=== PATIENT | male | born 1970 | race Caucasian/White ===

== ENCOUNTER 2024-10-22 11:42 | Observation (INO) ==
--- NOTE | 2024-10-22 12:09 | Emergency Department Note ---
Impression & Plan Chest pain, Chest pain, exertional ED Provider Note NAME: ASAEL [id number] MARY AGE: 54 SEX: M : 1970 ARRIVES VIA: Ambulance INFORMANT: Patient, ED PROVIDER(S): Jeremias Ovalles DO CHIEF COMPLAINT: Chest pain HPI: The patient is a 54-year-old male who has a history of hypertension and high cholesterol who presented to the emergency department for evaluation of chest pain. The patient resides at [facility]. The patient was sent to the emergency department after he was evaluated today for chest pain. The patient describes he has been having pressure on his left chest for the last several months. It worsens with exertion. The patient noticed pain radiating to his left arm. He went to the [facility] today and was referred directly to the emergency department. ROS: See above HPI for pertinent positives & negatives. A total of [10] systems reviewed and were otherwise negative. PAST MEDICAL HISTORY: [See Below] PAST SURGICAL HISTORY: [See Below] FAMILY HISTORY: [See Below] SOCIAL HISTORY: [See Below] HOME MEDICATIONS: [See Below] ALLERGIES: [See Below] VITALS: See Below PHYSICAL EXAMINATION: GENERAL: Patient is awake alert in no acute distress patient is resting comfortably and showing no signs of anxiety EYES: The conjunctivae are clear. The pupils are round and reactive. EARS, NOSE, MOUTH AND THROAT: The nose is without any evidence of any deformity. NECK: The neck is nontender and supple. RESPIRATORY: Normal respiratory effort is noted there is no evidence of wheezing rhonchi or rales CARDIOVASCULAR: Regular rate and rhythm noted there no murmurs rubs or gallops normal S1 normal S2. GASTROINTESTINAL: The abdomen is soft. Abdomen is nontender. SKIN: There is no obvious evidence of any rash. There are no petechiae, pallor or cyanosis noted. NEUROLOGIC: Patient is awake alert and oriented x3 MEDICAL DECISION MAKING: The patient is a 54-year-old male who presented to the emergency department from the [facility] for an evaluation of chest pain. The patient has been experiencing chest pain over the course of the last several weeks. The chest pain has been exertional. The patient presented to the emergency department today after experiencing chest pain again and going to the [facility]. He was treated with aspirin. He arrives at the emergency department pain-free. I discussed the patient's laboratory and radiographic studies with him. I discussed the limitations of the emergency far workup for chest pain with him. Ultimately given the patient's living situation I do not feel that he would be a good outpatient follow-up candidate. For this reason I discussed his condition with the on-call [facility] hospitalist. Triage Nursing notes reviewed. Prior medical records reviewed Vital Signs: reviewed and remarkable for no significant abnormalities Differential diagnosis: Cardiac ischemia, aortic dissection, pulmonary embolism, pneumothorax, pneumonia, pericarditis, myocarditis, esophageal rupture, GERD, cholecystitis, pancreatitis, musculoskeletal, as well as other pathologies. ER treatment provided: See below Diagnostics interpreted by me: ECG: EKG was obtained in the emergency department. My interpretation is normal sinus rhythm at 80 bpm. There was no ectopy. There was no acute ST segment abnormalities noted. No previous tracing was available in our system. EKG was reviewed from [place]. My interpretation is normal sinus rhythm at 85 beats per minute. There is no ectopy. There is no acute ST segment abnormalities noted. Poor baseline was noted. Cardiac Monitoring: An order was placed for continuous cardiac monitoring. The monitor shows a rate of 78 bpm with sinus rhythm. Laboratory studies: As stated above and show below. Imaging studies: See below. Radiographic imaging was reviewed by myself Consultation(s): I discussed this case with Dr. Alvarado [facility]. Past Med/Surg History Problem List (Updated 10/22/24 @ 14:13 by Jeremias Ovalles DO) Chest pain, exertional (Acute) Chest pain (Acute) Medical History Hyperlipidemia Coronary artery disease Hypertension Social History Smoking Status: Never smoker Communication Tools: IPad Feels Safe at Home: Yes Results & Data (ED) Vital Signs Vital Signs - 24 hr 10/22/24 11:42 10/22/24 11:47 10/22/24 12:14 Temperature 36.7 C Temperature Source Oral Pulse Rate 74 78 78 Pulse Rate [Apical] Pulse Rate from SpO2 Sensor Pulse Rhythm Regular Respiratory Rate 15 15 Respiratory Effort / Characteristics Non-Labored Respiratory Depth Normal Respiratory Pattern Regular Blood Pressure 100/75 Blood Pressure [Left Arm] Blood Pressure Mean 83 Blood Pressure Mean [Left Arm] Pulse Oximetry 98 98 Oxygen Delivery Method Room Air Room Air Sepsis Recent Fever Within 48 Hours No Sepsis New/Unexplained Change in Mental Status N/A Sepsis Action Taken by Nursing No Action Required 10/22/24 12:30 10/22/24 12:33 10/22/24 12:47 Temperature Temperature Source Pulse Rate 72 Pulse Rate [Apical] 80 Pulse Rate from SpO2 Sensor 71 Pulse Rhythm Respiratory Rate 17 22 Respiratory Effort / Characteristics Non-Labored Respiratory Depth Normal Respiratory Pattern Blood Pressure 126/82 Blood Pressure [Left Arm] 126/82 Blood Pressure Mean 92 Blood Pressure Mean [Left Arm] 96 Pulse Oximetry 100 95 Oxygen Delivery Method Room Air Room Air Sepsis Recent Fever Within 48 Hours Sepsis New/Unexplained Change in Mental Status Sepsis Action Taken by Nursing 10/22/24 13:00 10/22/24 13:30 Temperature Temperature Source Pulse Rate 72 78 Pulse Rate [Apical] Pulse Rate from SpO2 Sensor 82 79 Pulse Rhythm Respiratory Rate 19 19 Respiratory Effort / Characteristics Respiratory Depth Respiratory Pattern Blood Pressure 155/87 H 119/63 Blood Pressure [Left Arm] Blood Pressure Mean 109 83 Blood Pressure Mean [Left Arm] Pulse Oximetry 99 Oxygen Delivery Method Sepsis Recent Fever Within 48 Hours Sepsis New/Unexplained Change in Mental Status Sepsis Action Taken by Long-Term Medications Current Medication List: was personally reviewed by me Laboratory Data Attestation: I reviewed the patient's lab results. 10/22/24 12:03 10/22/24 12:03 Lab Results 10/22/24 Range/Units 12:03 WBC 8.46 (4.8-10.8) K/ul RBC 4.85 (4.70-6.10) M/uL Hgb 14.1 (14.0-18.0) g/dl Hct 41.7 L (42.0-52.0) % MCV 86.0 (80.0-100.0) fL MCH 29.1 (25.0-34.0) pg MCHC 33.8 (32.0-36.0) g/dL RDW Std Deviation 45.0 (36.4-46.3) fL RDW Coeff of Heidi 14.3 (11.5-14.5) % Plt Count 327 (130-400) K/uL MPV 9.6 (9.4-12.4) fL Immature Gran % (Auto) 0.1 % Neut % (Auto) 41.4 % Lymph % (Auto) 38.2 % [place]ess % (Auto) 14.4 % Eos % (Auto) 5.2 % Baso % (Auto) 0.7 % Neut # (Auto) 3.50 (1.40-6.50) K/uL Lymph # (Auto) 3.23 (1.20-3.40) K/uL [place]ess # (Auto) 1.22 H (0.11-0.59) K/uL Eos # (Auto) 0.44 (0.00-0.50) K/uL Baso # (Auto) 0.06 (0.00-0.20) K/uL Immature Gran # (Auto) 0.01 (0.01-0.20) K/uL PT 10.7 (9.0-12.0) Seconds INR 1.0 (0.9-1.1) APTT 28 (21-31) Seconds PTT Ratio 1.0 Sodium 137 (136-145) mmol/L Potassium 4.4 (3.5-5.1) mmol/L Chloride 105 (98-107) mmol/L Carbon Dioxide 25 (21-32) mmol/L Anion Gap 7 (3-11) BUN 14 (6-23) mg/dl Creatinine 1.02 (0.6-1.4) mg/dl Est Cr Clr Drug Dosing 104.8 ml/min eGFR 86.26 BUN/Creatinine Ratio 13.7 (10-20) Glucose 83 (70-99(Fasting)) mg/dl Calcium 9.4 (8.6-10.3) mg/dl Total Bilirubin 0.5 (0.2-1.0) mg/dl AST 23 (13-39) U/L ALT 11 (7-52) U/L Alkaline Phosphatase 55 (34-104) U/L Troponin I High Sens 5.7 (0-20) pg/ml Total Protein 7.3 (6.0-8.3) gm/dl Albumin 4.4 (3.4-5.0) gm/dl Globulin 2.9 (2.5-4.0) gm/dl Albumin/Globulin Ratio 1.5 (0.9-2) Lipase 21 (11-82) U/L Administered Medications Discontinued Medications Ioversol (Optiray 320 125ml) 120 ml IV ONCE ONE Stop: 10/22/24 13:12 Last Admin: 10/22/24 13:12 Dose: 120 ml Documented By: KEI Imaging Data Attestation: I personally reviewed and interpreted this imaging study as follows: My Impression: 1 view chest x-ray was obtained in the emergency department. My interpretation is no free air or definite infiltrate, final report below. Radiologist's Impression: Chest X-Ray 10/22/24 11:47 EXAM: Radiograph of the Chest 1 View INDICATION: Chest pain. TECHNIQUE: Frontal view of the chest. COMPARISON: No relevant prior studies available. FINDINGS: Lungs and pleural spaces: Groundglass infiltrate noted in the lateral right lung base. Generalized interstitial prominence noted in both lungs. There is scarring and insulin effects. No pleural effusion or pneumothorax. Heart: Shape and configuration within normal limits allowing for technique. Mediastinum: Normal contour. Bones/joints: No fracture, erosion or dislocation. Soft tissues: No abnormality noted. No radiopaque foreign body noted. Upper abdomen: No abnormality noted. IMPRESSION: 1. Groundglass infiltrate right lung base most concerning for pneumonia including viral etiologies. 2. Interstitial thickening may reflect acute and/or chronic bronchitis and vascular congestion. ACT 112: Negative or not required by law. Electronically signed by Danita Caldwell 10-22-2024 12:28 PM Chest CTA 10/22/24 13:04 EXAM: CT Angiography Chest With Intravenous Contrast INDICATION: Chest pain and shortness of breath. TECHNIQUE: Axial computed tomographic angiography images of the chest with intravenous contrast. Sagittal and coronal reformatted images were created and reviewed. This CT exam was performed using one or more of the following dose reduction techniques: automated exposure control, adjustment of the mA and/or kV according to patient size, and/or use of iterative reconstruction technique. MIP reconstructed images were created and reviewed. CONTRAST: 120ml of Optiray 320 was administered intravenously. COMPARISON: No relevant prior studies available. FINDINGS: Pulmonary arteries: No abnormality noted. No pulmonary embolism. Aorta: No acute change noted. No thoracic aortic aneurysm or dissection. Lungs and pleural spaces: Paraseptal and centrilobular emphysematous changes present. There is subpleural reticulation in all lobes. No bronchiectasis. No pleural effusion or pneumothorax. No mass. Heart: No abnormality noted. No cardiomegaly. No significant pericardial effusion. No evidence of RV dysfunction. Mediastinum: There is mild circumferential wall prominence of the distal half of the esophagus which is incompletely distended. No mass noted. No paraesophageal fluid. Bones/joints: Degenerative changes noted throughout the spine. No acute osseous abnormality seen. Soft tissues: No abnormality noted. Lymph nodes: No abnormality noted. No enlarged lymph nodes. IMPRESSION: 1. No pulmonary embolus noted. 2. Emphysematous and fibrotic changes present. 3. Prominent mucosal thickness of the distal half of the esophagus could reflect incomplete distention or esophagitis. ACT 112: Negative or not required by law. Electronically signed by Danita Caldwell 10-22-2024 13:26 PM Discharge Plan Visit Data Chief Complaint: Chest Pain Stated Complaint: CHEST PAIN ED Provider: Jeremias Ovalles Discharge Problem: Chest pain, Chest pain, exertional Patient Disposition: Being Evaluated by Hospitalist Forms Stand Alone Forms: On License Of [facility] Referrals Referrals: PCP,NO [Physician] - Discharge Problem: Chest pain Qualifiers: Chest pain type: unspecified Qualified Code(s): R07.9 - Chest pain, unspecified
[2024-10-22 12:22] LABS: Basophils # (auto) 0.06 K/uL (0.00-0.20); Basophils % (auto) 0.7 %; Eosinophils # (auto) 0.44 K/uL (0.00-0.50); Eosinophils % (auto) 5.2 %; Hematocrit (blood only) 41.7 % (42.0-52.0); Hemoglobin 14.1 g/dl (14.0-18.0); Immature Granulocytes # (auto) 0.01 K/uL (0.01-0.20); Immature Granulocytes % (auto) 0.1 %; Lymphocytes # (auto) 3.23 K/uL (1.20-3.40); Lymphocytes % (auto) 38.2 %; Mean Corpuscular Hemoglobin 29.1 pg (25.0-34.0); Mean Corpuscular Hgb Conc 33.8 g/dL (32.0-36.0); Mean Platelet Volume 9.6 fL (9.4-12.4); Monocytes # (auto) 1.22 K/uL (0.11-0.59); Monocytes % (auto) 14.4 %; Neutrophils % (auto) 41.4 %; Platelet Count 327 K/uL (130-400); RDW Coefficient of Variation 14.3 % (11.5-14.5); Red Blood Count 4.85 M/uL (4.70-6.10); White Blood Count 8.46 K/ul (4.8-10.8)
--- NOTE | 2024-10-22 12:28 | XRay Report ---
EXAM: Radiograph of the Chest 1 View INDICATION: Chest pain. TECHNIQUE: Frontal view of the chest. COMPARISON: No relevant prior studies available. FINDINGS: Lungs and pleural spaces: Groundglass infiltrate noted in the lateral right lung base. Generalized interstitial prominence noted in both lungs. There is scarring and insulin effects. No pleural effusion or pneumothorax. Heart: Shape and configuration within normal limits allowing for technique. Mediastinum: Normal contour. Bones/joints: No fracture, erosion or dislocation. Soft tissues: No abnormality noted. No radiopaque foreign body noted. Upper abdomen: No abnormality noted. IMPRESSION: 1. Groundglass infiltrate right lung base most concerning for pneumonia including viral etiologies. 2. Interstitial thickening may reflect acute and/or chronic bronchitis and vascular congestion. ACT 112: Negative or not required by law. Electronically signed by Danita Caldwell 10-22-2024 12:28 PM
[2024-10-22 12:45] LABS: Albumin Globulin Ratio 1.5 (0.9-2); Albumin Level 4.4 gm/dl (3.4-5.0); BUN Creatinine Ratio 13.7 (10-20); Bilirubin,Total 0.5 mg/dl (0.2-1.0); Calcium 9.4 mg/dl (8.6-10.3); Creatinine Clr Calc Pharmacy 104.8 ml/min; Globulin 2.9 gm/dl (2.5-4.0); Potassium 4.4 mmol/L (3.5-5.1); Total Protein 7.3 gm/dl (6.0-8.3)
[2024-10-22 12:52] LABS: Troponin I High Sensitivity 5.7 pg/ml (0-20)
[2024-10-22 12:56] LABS: Partial Thromboplastin Time 28 Seconds (21-31); Prothrombin Time 10.7 Seconds (9.0-12.0)
[2024-10-22] MEDS: OPTIRAY 320 125ml IV ONE (13:12)
--- NOTE | 2024-10-22 13:26 | CT Scan Report ---
EXAM: CT Angiography Chest With Intravenous Contrast INDICATION: Chest pain and shortness of breath. TECHNIQUE: Axial computed tomographic angiography images of the chest with intravenous contrast. Sagittal and coronal reformatted images were created and reviewed. This CT exam was performed using one or more of the following dose reduction techniques: automated exposure control, adjustment of the mA and/or kV according to patient size, and/or use of iterative reconstruction technique. MIP reconstructed images were created and reviewed. CONTRAST: 120ml of Optiray 320 was administered intravenously. COMPARISON: No relevant prior studies available. FINDINGS: Pulmonary arteries: No abnormality noted. No pulmonary embolism. Aorta: No acute change noted. No thoracic aortic aneurysm or dissection. Lungs and pleural spaces: Paraseptal and centrilobular emphysematous changes present. There is subpleural reticulation in all lobes. No bronchiectasis. No pleural effusion or pneumothorax. No mass. Heart: No abnormality noted. No cardiomegaly. No significant pericardial effusion. No evidence of RV dysfunction. Mediastinum: There is mild circumferential wall prominence of the distal half of the esophagus which is incompletely distended. No mass noted. No paraesophageal fluid. Bones/joints: Degenerative changes noted throughout the spine. No acute osseous abnormality seen. Soft tissues: No abnormality noted. Lymph nodes: No abnormality noted. No enlarged lymph nodes. IMPRESSION: 1. No pulmonary embolus noted. 2. Emphysematous and fibrotic changes present. 3. Prominent mucosal thickness of the distal half of the esophagus could reflect incomplete distention or esophagitis. ACT 112: Negative or not required by law. Electronically signed by Danita Caldwell 10-22-2024 13:26 PM
[2024-10-22 14:09] LABS: Adenovirus PCR Not Detected (NotDetected); Bordetella parapertussis PCR Not Detected (NotDetected); Bordetella pertussis PCR Not Detected (NotDetected); Chlamydia pneumoniae PCR Not Detected (NotDetected); Coronavirus 229E PCR Not Detected (NotDetected); Coronavirus CoV-2 (COVID19)PCR Not Detected (NotDetected); Coronavirus HKU1 PCR Not Detected (NotDetected); Coronavirus NL63 PCR Not Detected (NotDetected); Coronavirus OC43PCR Not Detected (NotDetected); Human Metapneumovirus PCR Not Detected (NotDetected); Influenza A PCR Not Detected (NotDetected); Influenza B PCR Not Detected (NotDetected); Mycoplasma pneumoniae PCR Not Detected (NotDetected); Parainfluenza Virus 1 PCR Not Detected (NotDetected); Parainfluenza Virus 2 PCR Not Detected (NotDetected); Parainfluenza Virus 3 PCR Not Detected (NotDetected); Parainfluenza Virus 4 PCR Not Detected (NotDetected); Respiratory Syncytial VirusPCR Not Detected (NotDetected); Rhinovirus/Enterovirus PCR Not Detected (NotDetected)
--- NOTE | 2024-10-22 14:41 | History & Physical Report ---
Date of Service October 22, 2024 Assessment & Plan (1) Chest pain, exertional: Plan: Presents with chest pain, worse with activity radiating into left arm today EKG does not show ST changes Trop is normal CTA chest also noted emphysematous and fibrotic changes Possible angina Will trend trop Get TTE Will check Urine drug screen Considering family hx and nature of pain, will consult Cards for possible stress test. Continue [employer] ASA and statin (2) Hypertension: Plan: Stable Continue [employer] lisinopril (3) Hyperlipidemia: Plan: Continue [employer] atorvastatin Check lipid panel DVT ppx- Hep sq I spent a total of 75 minutes coordinating, documenting and providing care for this patient excluding time spent in performance of separately billed services History of Present Illness Chief Complaint: Chest pain Primary Care Provider: FELISHA Beck 54-year-old man with history of hypertension, hyperlipidemia who was [facility] in from [facility] for [facility]. Patient reports chest pain has been ongoing for the past 3 months, intermittent, described as sharp/burning pain on the left side of the chest, worsened with activity and associated with shortness of breath. Episode started this morning around 7 AM and was radiating to the left arm. Got aspirin loading at the [facility] and was sent to the ER Chest pain is currently resolved. Denies any other complaints on review of system. Reported father and brother had heart issues and required surgery in the 60s. Reports he smoked for about 30 years about half a pack per day and quit about 4 years ago. Reported he had used cocaine in the past but unclear on his last use Denied alcohol use Home Medications Medication Instructions Recorded Confirmed Type acetaminophen 500 mg tablet 500 mg PO QID PRN Pain 10/22/24 10/22/24 History albuterol 90 mcg/actuation aerosol 180 mcg inhalation QID PRN 10/22/24 10/22/24 History inhaler Shortness Of Breath Or Wheezing aspirin 81 mg tablet,delayed 81 mg PO DAILY 10/22/24 10/22/24 History release atorvastatin 40 mg tablet 40 mg PO HS 10/22/24 10/22/24 History ciclesonide 80 mcg/actuation 1 puff inhalation BID 10/22/24 10/22/24 History aerosol inhaler (Alvesco) hydroxyzine HCl 50 mg tablet 50 mg PO HS 10/22/24 10/22/24 History lisinopril 20 mg tablet 20 mg PO DAILY 10/22/24 10/22/24 History meloxicam 7.5 mg tablet 7.5 mg PO BID PRN Pain 10/22/24 10/22/24 History risperidone 1 mg tablet 1 mg PO HS 10/22/24 10/22/24 History trazodone 150 mg tablet 150 mg PO HS 10/22/24 10/22/24 History Past Med/Surg History Problem List (Updated 10/22/24 @ 14:13 by Jeremias Ovalles DO) Chest pain, exertional (Acute) Chest pain (Acute) Medical History Hyperlipidemia Coronary artery disease Hypertension Social History Smoking Status: Never smoker Communication Tools: IPad Feels Safe at Home: Yes Review of Systems Review of Systems: All systems reviewed & are unremarkable except as noted in HPI & below Physical Exam Constitutional: + well hydrated; no acute distress Eyes: PERRL, conjunctivae normal, anicteric sclerae ENMT: external ear and nose normal, oropharynx normal Respiratory: normal respiratory effort, lungs clear to auscultation Cardiovascular: Rate/Rhythm: regular rate and regular rhythm Gastrointestinal (Abdomen): normal bowel sounds, soft, nontender, no hepatosplenomegaly Musculoskeletal: no cyanosis or clubbing, extremities motor strength 5/5 Neurologic: PERRL, EOMI, accommodation nl, no face palsy, no dysarthria Psychiatric: A+Ox3, euthymic affect Results & Data Results & Data Vital Signs (Past 12 Hours) Vital Signs Temp Pulse Pulse Resp BP BP Pulse Ox 10/22/24 13:30 78 19 119/63 99 10/22/24 13:00 72 19 155/87 H 10/22/24 12:47 80 22 126/82 95 10/22/24 12:33 10/22/24 12:30 72 17 126/82 100 10/22/24 12:14 78 10/22/24 11:47 78 15 98 10/22/24 11:42 36.7 C 74 15 100/75 98 O2 Del Method 10/22/24 13:30 10/22/24 13:00 10/22/24 12:47 Room Air 10/22/24 12:33 Room Air 10/22/24 12:30 12/21/24 12:14 10/22/24 11:47 Room Air 10/22/24 11:42 Room Air Laboratory Results Laboratory Results - last 24 hr 10/22/24 10/22/24 10/22/24 12:03 13:09 14:29 WBC 8.46 RBC 4.85 Hgb 14.1 Hct 41.7 L MCV 86.0 MCH 29.1 MCHC 33.8 RDW Std Deviation 45.0 RDW Coeff of Heidi 14.3 Plt Count 327 MPV 9.6 Immature Gran % (Auto) 0.1 Neut % (Auto) 41.4 Lymph % (Auto) 38.2 [place] % (Auto) 14.4 Eos % (Auto) 5.2 Baso % (Auto) 0.7 Neut # (Auto) 3.50 Lymph # (Auto) 3.23 [place] # (Auto) 1.22 H Eos # (Auto) 0.44 Baso # (Auto) 0.06 Immature Gran # (Auto) 0.01 PT 10.7 INR 1.0 APTT 28 PTT Ratio 1.0 Sodium 137 Potassium 4.4 Chloride 105 Carbon Dioxide 25 Anion Gap 7 BUN 14 Creatinine 1.02 Est Cr Clr Drug Dosing 104.8 eGFR 86.26 BUN/Creatinine Ratio 13.7 Glucose 83 Calcium 9.4 Total Bilirubin 0.5 AST 23 ALT 11 Alkaline Phosphatase 55 Troponin I High Sens 5.7 Total Protein 7.3 Albumin 4.4 Globulin 2.9 Albumin/Globulin Ratio 1.5 Lipase 21 Urine Opiates Screen Pending Ur Methadone, Qual Pending Urine Fentanyl Screen Pending Urine Barbiturates Pending Ur Phencyclidine (PCP) Pending U Amphetamin/Meth Scrn Pending MDMA (Ecstasy) Screen Pending U Benzodiazepines Scrn Pending Ur Cocaine Metabolite Pending U Marijuana (THC) Screen Pending Adenovirus (PCR) Not Detected B. pertussis DNA (PCR) Not Detected B.parapertussis DNA PCR Not Detected C. pneumoniae DNA (PCR) Not Detected Coronavirus OC43 (PCR) Not Detected Coronavirus HKU1 (PCR) Not Detected Coronavirus 229E (PCR) Not Detected SARS-CoV-2 (PCR) Not Detected Coronavirus NL63 (PCR) Not Detected Human Metapneumovir PCR Not Detected Influenza Type A (PCR) Not Detected Influenza Type B (PCR) Not Detected M. pneumoniae (PCR) Not Detected Parainfluenza 1 (PCR) Not Detected Parainfluenza 2 (PCR) Not Detected Parainfluenza 3 (PCR) Not Detected Parainfluenza 4 (PCR) Not Detected RSV (PCR) Not Detected Entero/Rhino (PCR) Not Detected Diagnostic Findings CT Angiography Chest With Intravenous Contrast INDICATION: Chest pain and shortness of breath. TECHNIQUE: Axial computed tomographic angiography images of the chest with intravenous contrast. Sagittal and coronal reformatted images were created and reviewed. This CT exam was performed using one or more of the following dose reduction techniques: automated exposure control, adjustment of the mA and/or kV according to patient size, and/or use of iterative reconstruction technique. MIP reconstructed images were created and reviewed. CONTRAST: 120ml of Optiray 320 was administered intravenously. COMPARISON: No relevant prior studies available. FINDINGS: Pulmonary arteries: No abnormality noted. No pulmonary embolism. Aorta: No acute change noted. No thoracic aortic aneurysm or dissection. Lungs and pleural spaces: Paraseptal and centrilobular emphysematous changes present. There is subpleural reticulation in all lobes. No bronchiectasis. No pleural effusion or pneumothorax. No mass. Heart: No abnormality noted. No cardiomegaly. No significant pericardial effusion. No evidence of RV dysfunction. Mediastinum: There is mild circumferential wall prominence of the distal half of the esophagus which is incompletely distended. No mass noted. No paraesophageal fluid. Bones/joints: Degenerative changes noted throughout the spine. No acute osseous abnormality seen. Soft tissues: No abnormality noted. Lymph nodes: No abnormality noted. No enlarged lymph nodes. IMPRESSION: 1. No pulmonary embolus noted. 2. Emphysematous and fibrotic changes present. 3. Prominent mucosal thickness of the distal half of the esophagus could reflect incomplete distention or esophagitis. Code Status & VTE Plan Code Status Full Code
[2024-10-22 14:57] LABS: Amphetamines+Metham, Urine Neg (Neg); Barbiturates, Urine Neg (Neg); Benzodiazepine, Urine Neg (Neg); Cocaine, Urine Neg (Neg); Fentanyl, Urine Neg (Neg); MDMA (Ecstacy), Urine Neg (Neg); Marijuana, Urine Neg (Neg); Methadone, Urine Neg (Neg); Opiate, Urine Neg (Neg); Phencyclidine, Urine Neg (Neg)
[2024-10-22] MEDS ORDERED: ACETAMINOPHEN 500 MG TAB PO PRN (20:21)
[2024-10-22] MEDS ORDERED: ALBUTEROL HFA 8 GM INHALER INH PRN (21:12)
[2024-10-22] MEDS: Patient's ALLERGY Info needs ENTERED SCH (21:22)
[2024-10-22] MEDS: HEPARIN SOD 5,000 UNIT/0.5 ML VIAL SQ SCH (22:00)
[2024-10-22] MEDS: risperiDONE 1 MG TABLET PO SCH (22:00)
[2024-10-22] MEDS: hydrOXYzine HCl 25 MG TAB PO SCH (22:00)
[2024-10-22] MEDS: traZODone HCL 50 MG TAB PO SCH (22:00)
[2024-10-22] MEDS: ATORVASTATIN 40 MG TAB PO SCH (22:00)
[2024-10-23 06:29] LABS: Hematocrit (blood only) 39.8 % (42.0-52.0); Hemoglobin 13.6 g/dl (14.0-18.0); Mean Corpuscular Hemoglobin 29.4 pg (25.0-34.0); Mean Corpuscular Hgb Conc 34.2 g/dL (32.0-36.0); Mean Platelet Volume 9.7 fL (9.4-12.4); Platelet Count 301 K/uL (130-400); RDW Coefficient of Variation 14.5 % (11.5-14.5); RDW Standard Deviation 45.7 fL (36.4-46.3); Red Blood Count 4.63 M/uL (4.70-6.10); White Blood Count 9.19 K/ul (4.8-10.8)
[2024-10-23 06:48] LABS: Calcium 8.8 mg/dl (8.6-10.3); Chol HDL Ratio 3.6 (0-5); Creatinine Clr Calc Pharmacy 104.4 ml/min; Magnesium 1.8 mg/dl (1.7-2.4); Phosphorus 3.8 mg/dl (2.5-4.9); Potassium 4.1 mmol/L (3.5-5.1)
[2024-10-23 07:30] LABS: Estimated Average Glucose 120 mg/dl; Hemoglobin A1C 5.8 % (4.5-5.6)
[2024-10-23] MEDS: FLUTICASONE FUROATE 100MCG 14 PUFFS/INHALER INH SCH (08:40)
[2024-10-23] MEDS: lisinopril 20 MG TAB PO SCH (08:41)
[2024-10-23] MEDS: ASPIRIN 81 MG ECTAB PO SCH (08:41)
--- NOTE | 2024-10-23 10:09 | Hospitalist Progress Note ---
Date of Service October 23, 2024 Assessment & Plan (1) Chest pain, exertional: Plan Pt is a 54yoM with PMHx significant for hypertension and hyperlipidemia who presented from a [facility]al [facility] with chest pain on exertion. Exertional Chest Pain Presents with chest pain, worse with activity radiating into left arm EKG with NSR, no signs of ischemia Trop x2 wnl, third pending Echo with EF 55-60%, mild LVH, anterior septum movement suggesting possible underlying conduction abnormality Chest XRAY noting groundglass opacities in R lung base, question of viral pneumonia. Also noting acute/chronic bronchitic changes CTA chest noting no PE, emphysematous and fibrotic changes and possible esophagitis. No pneumonia Urine drug screen unremarkable Hgba1c of 5.8, prediabetic Lipid panel wnl Cardiology consulted, appreciate recs -stress echo on 10/24 Continue PROJECT DESIGNER ASA and statin Possible Esophagitis As noted above possible cause of chest pain? Started on ppi GI consulted, appreciate recs COPD Chest imaging concerning for emphysema and bronchitis Pt with significant smoking Hx ?cause of chest pain with exertion Not acutely hypoxic, no significant cough or mucus production to suggest exacerb ation Started on scheduled combivent formulary alternative inhalers PCP followup on discharge Prediabetes Hgba1c of 5.8 Diet and exercise changes encouraged PCP followup Hypertension Stable Continue PROJECT DESIGNER lisinopril Hyperlipidemia Continue PROJECT DESIGNER atorvastatin Lipid panel wnl Continue other home meds as ordered Diet: HH, safe tray DVT ppx- Hep sq Dispo: return to correctional facility once medically stable Admission and Anticipated Discharge Date Admission Date: October 22, 2024 Subjective Pt was seen in the AM with guard at bedside. Denied acute chest pain at that time, denied SOB Review of Systems Review of Systems: All systems reviewed & are unremarkable except as noted in Subjective Physical Exam Physical Exam: General: Alert, oriented. No acute distress Skin: No noted rashes or bruises Psych: Appropriate mood and affect Neuro: No gross deficits HEENT: NC/AT CV: RRR Resp: Breath sounds clear bilaterally, no increased effort of breathing Abdomen: Soft, nontender Extremities: No edema in lower extremities bilaterally. Results & Data Results & Data Vital Signs (Past 12 Hours) Vital Signs Temp Pulse Pulse Resp BP Pulse Ox O2 Del Method 10/23/24 07:15 36.3 C L 90 16 103/72 98 Room Air 10/23/24 07:05 80 10/23/24 02:07 36.5 C 85 16 121/72 96 Room Air 10/22/24 23:27 36.5 C 93 H 16 119/73 96 Room Air Diagnostic Findings Chest X-Ray 10/22/24 11:47 EXAM: Radiograph of the Chest 1 View INDICATION: Chest pain. TECHNIQUE: Frontal view of the chest. COMPARISON: No relevant prior studies available. FINDINGS: Lungs and pleural spaces: Groundglass infiltrate noted in the lateral right lung base. Generalized interstitial prominence noted in both lungs. There is scarring and insulin effects. No pleural effusion or pneumothorax. Heart: Shape and configuration within normal limits allowing for technique. Mediastinum: Normal contour. Bones/joints: No fracture, erosion or dislocation. Soft tissues: No abnormality noted. No radiopaque foreign body noted. Upper abdomen: No abnormality noted. IMPRESSION: 1. Groundglass infiltrate right lung base most concerning for pneumonia including viral etiologies. 2. Interstitial thickening may reflect acute and/or chronic bronchitis and vascular congestion. ACT 112: Negative or not required by law. Electronically signed by Danita Caldwell 10-22-2024 12:28 PM Chest CTA 10/22/24 13:04 EXAM: CT Angiography Chest With Intravenous Contrast INDICATION: Chest pain and shortness of breath. TECHNIQUE: Axial computed tomographic angiography images of the chest with intravenous contrast. Sagittal and coronal reformatted images were created and reviewed. This CT exam was performed using one or more of the following dose reduction techniques: automated exposure control, adjustment of the mA and/or kV according to patient size, and/or use of iterative reconstruction technique. MIP reconstructed images were created and reviewed. CONTRAST: 120ml of Optiray 320 was administered intravenously. COMPARISON: No relevant prior studies available. FINDINGS: Pulmonary arteries: No abnormality noted. No pulmonary embolism. Aorta: No acute change noted. No thoracic aortic aneurysm or dissection. Lungs and pleural spaces: Paraseptal and centrilobular emphysematous changes present. There is subpleural reticulation in all lobes. No bronchiectasis. No pleural effusion or pneumothorax. No mass. Heart: No abnormality noted. No cardiomegaly. No significant pericardial effusion. No evidence of RV dysfunction. Mediastinum: There is mild circumferential wall prominence of the distal half of the esophagus which is incompletely distended. No mass noted. No paraesophageal fluid. Bones/joints: Degenerative changes noted throughout the spine. No acute osseous abnormality seen. Soft tissues: No abnormality noted. Lymph nodes: No abnormality noted. No enlarged lymph nodes. IMPRESSION: 1. No pulmonary embolus noted. 2. Emphysematous and fibrotic changes present. 3. Prominent mucosal thickness of the distal half of the esophagus could reflect incomplete distention or esophagitis. ACT 112: Negative or not required by law. Electronically signed by Danita Caldwell 10-22-2024 13:26 PM
--- NOTE | 2024-10-23 12:21 | Cardiology Consultation ---
Date of Consultation October 23, 2024 Assessment & Plan (1) Chest pain, exertional: Plan 54-year-old male presents for evaluation of exertional chest discomfort. Symptoms concerning for angina although not consistently reproducible. There is no evidence of acute coronary syndrome with negative cardiac enzymes and normal resting ECG. Baseline echocardiogram demonstrates preserved LV systolic function. Recommend exercise stress echo for further evaluation. Patient physically capable of ambulating on treadmill and agreeable to testing. Stress testing scheduled 10/24/2024 in AM. History of Present Illness Reason for Consultation: Evaluation chest pain workup, evaluation for possible stress test Requesting Physician: Dr. Jaeger Attending Physician: Lynsey Antunez MD History of Present Illness 54-year-old Guamanian-speaking patient presents to the emergency department due to chest discomfort. Describes exertional chest "twinges" as well as heaviness and tightness. Discomfort occurs when he walks long distances although at times the discomfort is not reproducible with activity/exertion. Typically relieved with rest. Rare episodes of resting discomfort reported. Denies orthopnea, PND, lower extremity edema. Denies personal history of coronary disease, congestive heart failure, or rheumatic fever as a child. History obtained via remote nurse extern. Allergies Allergy/AdvReac Type Severity Reaction Status Date / Time No Known Allergies Allergy Unverified 10/22/24 21:22 Home Medications Medication Instructions Recorded Confirmed Type acetaminophen 500 mg tablet 500 mg PO QID PRN Pain 10/22/24 10/22/24 History albuterol 90 mcg/actuation aerosol 180 mcg inhalation QID PRN 10/22/24 10/22/24 History inhaler Shortness Of Breath Or Wheezing aspirin 81 mg tablet,delayed 81 mg PO DAILY 10/22/24 10/22/24 History release atorvastatin 40 mg tablet 40 mg PO HS 10/22/24 10/22/24 History ciclesonide 80 mcg/actuation 1 puff inhalation BID 10/22/24 10/22/24 History aerosol inhaler (Alvesco) hydroxyzine HCl 50 mg tablet 50 mg PO HS 10/22/24 10/22/24 History lisinopril 20 mg tablet 20 mg PO DAILY 10/22/24 10/22/24 History meloxicam 7.5 mg tablet 7.5 mg PO BID PRN Pain 10/22/24 10/22/24 History risperidone 1 mg tablet 1 mg PO HS 10/22/24 10/22/24 History trazodone 150 mg tablet 150 mg PO HS 10/22/24 10/22/24 History Patient History Medical History Hyperlipidemia Coronary artery disease Hypertension Social History Smoking Status: Former smoker Hx Alcohol Use: No Hx Substance Use: Yes Last Used Substance: Unknown Preferred Language: Guamanian Communication Ability: Effective Communication Tools: IPad Abrasive Wheel Molder Required: No Beliefs That Will Affect Care: None Current Living Situation Comment: prisoner Feels Safe at Home: Yes Assistive Devices: None Physical Exam Constitutional: well nourished; no acute distress Respiratory: no respiratory distress, no labored breathing and no retractions Cardiovascular: Rate/Rhythm: regular rate and regular rhythm Heart Sounds: normal S1 and normal S2; no murmur Vessels: no JVD and no carotid bruit Extremities: no edema Gastrointestinal (Abdomen): Inspection/Auscultation: abdomen normal to inspection and normal bowel sounds; abdomen not distended Percussion/Palpation: abdomen soft; abdomen nontender, no guarding and abdomen not rigid Neurologic: CN's II-XI intact bilaterally and moves all extremities; no focal motor deficits Results & Data Vital Signs (Past 12 Hours) Vital Signs Temp Pulse Pulse Resp BP Pulse Ox O2 Del Method 10/23/24 11:25 36.6 C 81 16 103/70 98 Room Air 10/23/24 07:15 36.3 C L 90 16 103/72 98 Room Air 10/23/24 07:05 80 10/23/24 02:07 36.5 C 85 16 121/72 96 Room Air Laboratory Results Cardiac Enzymes 10/22/24 10/22/24 Range/Units 12:03 20:59 AST 23 (13-39) U/L Troponin I High Sens 5.7 7.3 (0-20) pg/ml Coagulation 10/22/24 Range/Units 12:03 PT 10.7 (9.0-12.0) Seconds APTT 28 (21-31) Seconds Lipids 10/23/24 Range/Units 05:44 Triglycerides 146 (0-150) mg/dl Cholesterol 120 (0-200) mg/dl HDL Cholesterol 33 mg/dl Cholesterol/HDL Ratio 3.6 (0-5) CBC 10/22/24 10/23/24 Range/Units 12:03 05:44 WBC 8.46 9.19 (4.8-10.8) K/ul RBC 4.85 4.63 L (4.70-6.10) M/uL Hgb 14.1 13.6 L (14.0-18.0) g/dl Hct 41.7 L 39.8 L (42.0-52.0) % Plt Count 327 301 (130-400) K/uL Neut # (Auto) 3.50 (1.40-6.50) K/uL Lymph # (Auto) 3.23 (1.20-3.40) K/uL [place] # (Auto) 1.22 H (0.11-0.59) K/uL Eos # (Auto) 0.44 (0.00-0.50) K/uL Baso # (Auto) 0.06 (0.00-0.20) K/uL Comprehensive Metabolic Panel 10/22/24 10/23/24 Range/Units 12:03 05:44 Sodium 137 139 (136-145) mmol/L Potassium 4.4 4.1 (3.5-5.1) mmol/L Chloride 105 105 (98-107) mmol/L Carbon Dioxide 25 27 (21-32) mmol/L BUN 14 13 (6-23) mg/dl Creatinine 1.02 1.00 (0.6-1.4) mg/dl Glucose 83 80 (70-99(Fasting)) mg/dl Calcium 9.4 8.8 (8.6-10.3) mg/dl AST 23 (13-39) U/L ALT 11 (7-52) U/L Alkaline Phosphatase 55 (34-104) U/L Total Protein 7.3 (6.0-8.3) gm/dl Albumin 4.4 (3.4-5.0) gm/dl Intake and Output 10/22/24 10/23/24 10/23/24 22:59 06:59 14:59 Intake Total 300 / 300 Balance 300 / 300 Intake: Oral 300 / 300 Other: Weight 102.058 kg 103.8 kg Weight Measurement Method Standing Scale
--- NOTE | 2024-10-23 13:07 | Electrocardiogram Report ---
Test Reason : Blood Pressure : */* mmHG Vent. Rate : 80 BPM Atrial Rate : 80 BPM P-R Int : 142 ms QRS Dur : 82 ms QT Int : 372 ms P-R-T Axes : 52 22 35 degrees QTcB Int : 429 ms Normal sinus rhythm Normal ECG No previous ECGs available Confirmed by Jeremias Newton ([id number]) on 10/23/2024 1:06:40 PM Referred By: [facility] Confirmed By: Jeremias Newton
[2024-10-23] MEDS ORDERED: IPRATROPIUM BROMIDE/ALBUTEROL respimat INH INH SCH (17:00)
--- NOTE | 2024-10-23 17:30 | Gastrointestinal Consultation ---
Date of Consultation October 23, 2024 Assessment & Plan (1) Heartburn: Patient has a history of gastrointestinal issues with heartburn he had an EGD and [facility] done [facility] as per the patient where he was told he had a hiatal hernia gastritis and the colonoscopy was normal currently he is being evaluated for cardiac causes of chest pain he is scheduled to undergo a stress test tomorrow at the current time I would 1. Obtain old records from [facility] 2. Placed on PPI twice daily half an hour before breakfast and dinner 3. After review of old records and if cleared from cardiology he may need an EGD but will decide upon that after cardiac evaluation and record review In the meantime continue with PPI twice daily Thank you for allowing us to take part in the care of your patient we will continue to follow him with you History of Present Illness Reason for Consultation: Reflux and chest discomfort Requesting Physician: Valentino Benoit Attending Physician: Lynsey Antunez MD History of Present Illness A pleasant male who appears comfortable in the bed he is able to speak some Georgian but most of the history was obtained through an roll icer machine using the official iPad and roll icer machine service of note he is also present her and there were guards present in the room also the patient has a history of GI issues he states last year in [facility] he had an EGD and a colonoscopy done and he was told that he had a hiatal hernia and gastritis and the colonoscopy was allegedly normal and told to repeat in 10 years at the current time he states he sometimes has dysphagia with rice but otherwise he is okay he is not taking any PPI recently but he states he was on PPI and when when he was on that he was doing better denies any nausea or vomiting he does have reflux has some nonspecific epigastric discomfort no hematuria emesis melena or hematochezia he normally has 1 bowel movement a day and they are regular Allergies Allergy/AdvReac Type Severity Reaction Status Date / Time No Known Allergies Allergy Unverified 10/22/24 21:22 Home Medications Medication Instructions Recorded Confirmed Type acetaminophen 500 mg tablet 500 mg PO QID PRN Pain 10/22/24 10/22/24 History albuterol 90 mcg/actuation aerosol 180 mcg inhalation QID PRN 10/22/24 10/22/24 History inhaler Shortness Of Breath Or Wheezing aspirin 81 mg tablet,delayed 81 mg PO DAILY 10/22/24 10/22/24 History release atorvastatin 40 mg tablet 40 mg PO HS 10/22/24 10/22/24 History ciclesonide 80 mcg/actuation 1 puff inhalation BID 10/22/24 10/22/24 History aerosol inhaler (Alvesco) hydroxyzine HCl 50 mg tablet 50 mg PO HS 10/22/24 10/22/24 History lisinopril 20 mg tablet 20 mg PO DAILY 10/22/24 10/22/24 History meloxicam 7.5 mg tablet 7.5 mg PO BID PRN Pain 10/22/24 10/22/24 History risperidone 1 mg tablet 1 mg PO HS 10/22/24 10/22/24 History trazodone 150 mg tablet 150 mg PO HS 10/22/24 10/22/24 History Patient History Medical History Hyperlipidemia Coronary artery disease Hypertension Social History Smoking Status: Former smoker Hx Alcohol Use: No Hx Substance Use: Yes Last Used Substance: Unknown Preferred Language: Lithuanian Communication Ability: Effective Communication Tools: IPad Report Analyst Required: No Beliefs That Will Affect Care: None Current Living Situation Comment: prisoner Feels Safe at Home: Yes Assistive Devices: None Review of Systems Review of Systems: A 10 point review of systems was done Physical Exam Physical Exam: Middle-aged male appears comfortable Constitutional: Well-developed well-nourished Eyes: Sclera nonicteric Neck: Supple Respiratory: Clear anteriorly Cardiovascular: S1 and S2 Gastrointestinal (Abdomen): Soft no tenderness or masses appreciated bowel sounds are present Results & Data Vital Signs (Past 12 Hours) Vital Signs Temp Pulse Pulse Resp BP Pulse Ox O2 Del Method 10/23/24 15:06 36.7 C 77 16 107/72 97 Room Air 10/23/24 14:58 87 10/23/24 11:25 36.6 C 81 16 103/70 98 Room Air 10/23/24 07:15 36.3 C L 90 16 103/72 98 Room Air 10/23/24 07:05 80 PG Care Time/CCT Total # of Minutes Spent Total Time Spent with Patient: Total time spent is greater than 50% in coordination of care (as documented) at patient's floor/unit and/or counseling patient: Coding Level of Care Code 29338 IN/OBS CONSULT LVL 3,45M Diagnoses Heartburn R12
[2024-10-23] MEDS: IPRATROPIUM BROMIDE HFA INHALER INH SCH (19:58)
[2024-10-23] MEDS: ALBUTEROL HFA 8 GM INHALER INH SCH (19:58)
[2024-10-23] MEDS ORDERED: PANTOprazole 40 MG TAB PO SCH (21:00)
[2024-10-24 06:09] LABS: Basophils # (auto) 0.06 K/uL (0.00-0.20); Basophils % (auto) 0.8 %; Hemoglobin 14.3 g/dl (14.0-18.0); Immature Granulocytes # (auto) 0.02 K/uL (0.01-0.20); Immature Granulocytes % (auto) 0.3 %; Lymphocytes # (auto) 3.26 K/uL (1.20-3.40); Lymphocytes % (auto) 40.9 %; Mean Corpuscular Hemoglobin 29.2 pg (25.0-34.0); Mean Corpuscular Volume 85.7 fL (80.0-100.0); Mean Platelet Volume 9.7 fL (9.4-12.4); Monocytes # (auto) 1.03 K/uL (0.11-0.59); Monocytes % (auto) 12.9 %; Neutrophils % (auto) 40.1 %; Platelet Count 312 K/uL (130-400); RDW Coefficient of Variation 14.4 % (11.5-14.5); RDW Standard Deviation 44.9 fL (36.4-46.3); White Blood Count 7.97 K/ul (4.8-10.8)
[2024-10-24 06:29] LABS: BUN Creatinine Ratio 13.7 (10-20); Creatinine Clr Calc Pharmacy 102.1 ml/min; Magnesium 1.9 mg/dl (1.7-2.4); Phosphorus 4.3 mg/dl (2.5-4.9); Potassium 4.5 mmol/L (3.5-5.1)
[2024-10-24] MEDS: PANTOprazole 40 MG TAB PO SCH (08:17)
--- NOTE | 2024-10-24 08:49 | Cardiology Progress Note ---
Date of Service October 24, 2024 Assessment & Plan (1) Chest pain, exertional: Plan 54-year-old male presents for evaluation of exertional chest discomfort. Symptoms concerning for angina although not consistently reproducible. There is no evidence of acute coronary syndrome with negative cardiac enzymes and normal resting ECG. Baseline echocardiogram demonstrates preserved LV systolic function. Recommend exercise stress echo for further evaluation. Patient physically capable of ambulating on treadmill and agreeable to testing. Stress testing scheduled 10/24/2024 in AM. 10/24/2024 Patient referred and underwent stress echocardiogram. Patient exercised for a total of 6 minutes on a standard Luis protocol for an estimated met level at 7 METS. There was an accelerated heart rate response to exercise with otherwise normal stress testing. Patient achieved greater than 100% age-predicted maximum heart rate at workload achieved. There were no cardiac symptoms. There was no evidence of ischemia by EKG or echocardiographic criteria Recommendations: Reduce lisinopril to 10 mg p.o. daily Add low-dose metoprolol succinate 12.5 mg daily for heart rate and blood pressure control. No additional cardiac testing recommended Admission and Anticipated Discharge Date Admission Date: October 22, 2024 Subjective Patient was seen and examined with the aid of nursing informatics specialist service. Patient denies any additional chest pain since hospitalization. No dizziness or lightheadedness. Referred for stress echocardiogram this morning Physical Exam Constitutional: well nourished; no acute distress Respiratory: no respiratory distress, no labored breathing and no retractions Cardiovascular: Rate/Rhythm: regular rate and regular rhythm Heart Sounds: normal S1 and normal S2; no murmur Vessels: no JVD and no carotid bruit Extremities: no edema Gastrointestinal (Abdomen): Inspection/Auscultation: abdomen normal to inspection and normal bowel sounds; abdomen not distended Percussion/Palpation: abdomen soft; abdomen nontender, no guarding and abdomen not rigid Neurologic: CN's II-XI intact bilaterally and moves all extremities; no focal motor deficits Results & Data Vital Signs (Past 12 Hours) Vital Signs Temp Pulse Pulse Resp BP Pulse Ox O2 Del Method 10/24/24 07:45 36.4 C L 84 16 114/71 98 Room Air 10/24/24 07:37 102 H 14 98 Room Air 10/24/24 07:20 Room Air 10/24/24 05:44 63 10/24/24 02:50 36.5 C 81 16 106/67 98 Room Air 10/23/24 23:26 77 10/23/24 22:52 36.7 C 83 16 90/53 L 95 Room Air Laboratory Results Laboratory Results - last 24 hr 10/23/24 10/24/24 16:22 05:26 WBC 7.97 RBC 4.90 Hgb 14.3 Hct 42.0 MCV 85.7 MCH 29.2 MCHC 34.0 RDW Std Deviation 44.9 RDW Coeff of Heidi 14.4 Plt Count 312 MPV 9.7 Immature Gran % (Auto) 0.3 Neut % (Auto) 40.1 Lymph % (Auto) 40.9 [place] % (Auto) 12.9 Eos % (Auto) 5.0 Baso % (Auto) 0.8 Neut # (Auto) 3.20 Lymph # (Auto) 3.26 [place] # (Auto) 1.03 H Eos # (Auto) 0.40 Baso # (Auto) 0.06 Immature Gran # (Auto) 0.02 Sodium 139 Potassium 4.5 Chloride 107 Carbon Dioxide 25 Anion Gap 7 BUN 14 Creatinine 1.02 Est Cr Clr Drug Dosing 102.1 eGFR 86.26 BUN/Creatinine Ratio 13.7 Glucose 89 Calcium 9.0 Phosphorus 4.3 Magnesium 1.9 Troponin I High Sens 4.6 Procalcitonin < 0.02
--- NOTE | 2024-10-24 09:34 | Gastroenterology Progress Note ---
Date of Service October 24, 2024 Assessment & Plan (1) Chest pain, exertional: Plan: 54 year old male with history of COPD, HTN, dyslipidemia admitted w/ CP, GI was asked to evaluate to rule out gastrointestinal etiology. He was not evaluated today as he was out of the room for testing. Recommend obtaining records from EGD/Colonoscopy done recently in the [place], [place] area. Continue PPI therapy. GERD dietary and lifestyle changes. Recall GI once records are obtained. Thank you for allowing us to participate in the care of this patient. Please call with any acute changes, questions or concerns. Please see addendum below with additional recommendation from my supervising physician. Admission and Anticipated Discharge Date Admission Date: October 22, 2024 Supervising Physician Co-Signing Physician Notes Patient evaluated with CONFERENCE PLANNER patient's stress test today was negative discussed with primary team who will be keeping him in the hospital for further evaluation will plan an upper endoscopy tomorrow especially since he had some dysphagia we will also try to get old records from his previous colonoscopy done and [facility] as per the patient further recommendations after the upper endoscopy Subjective Patient out of room during AM rounds. Review of Systems Review of Systems: N/A patient out of room. Physical Exam Physical Exam: N/A patient out of room. Results & Data Results & Data Vital Signs (Past 12 Hours) Vital Signs Temp Pulse Pulse Resp BP Pulse Ox O2 Del Method 10/24/24 07:45 36.4 C L 84 16 114/71 98 Room Air 10/24/24 07:37 102 H 14 98 Room Air 10/24/24 07:20 Room Air 10/24/24 05:44 63 10/24/24 02:50 36.5 C 81 16 106/67 98 Room Air 10/23/24 23:26 77 10/23/24 22:52 36.7 C 83 16 90/53 L 95 Room Air PG Care Time/CCT Total # of Minutes Spent Total Time Spent with Patient: Total time spent is greater than 50% in coordination of care (as documented) at patient's floor/unit and/or counseling patient: Coding Level of Care Code None Diagnoses Chest pain, exertional R07.9
--- NOTE | 2024-10-24 11:44 | Electrocardiogram Report ---
Test Reason : Blood Pressure : */* mmHG Vent. Rate : 86 BPM Atrial Rate : 86 BPM P-R Int : 138 ms QRS Dur : 96 ms QT Int : 372 ms P-R-T Axes : 59 36 54 degrees QTcB Int : 445 ms Normal sinus rhythm Normal ECG When compared with ECG of 22-Oct-2024 11:48, No significant change was found Confirmed by Darek Larsen ([id number]) on 10/24/2024 11:44:13 AM Referred By: [facility] Confirmed By: Darek Larsen
--- NOTE | 2024-10-24 14:32 | Hospitalist Progress Note ---
Date of Service October 24, 2024 Assessment & Plan (1) Chest pain, exertional: Plan Pt is a 54yoM with PMHx significant for hypertension and hyperlipidemia who presented from a correctional facility with chest pain on exertion. Exertional Chest Pain Presents with chest pain, worse with activity radiating into left arm EKG with NSR, no signs of ischemia Trop x2 wnl, third pending Echo with EF 55-60%, mild LVH, anterior septum movement suggesting possible underlying conduction abnormality Chest XRAY noting groundglass opacities in R lung base, question of viral pneumonia. Also noting acute/chronic bronchitic changes CTA chest noting no PE, emphysematous and fibrotic changes and possible esophagitis. No pneumonia Urine drug screen unremarkable Hgba1c of 5.8, prediabetic Lipid panel wnl Cardiology consulted, appreciate recs -stress echo on 10/24 negative for ischemic changes Continue LOG BUYER ASA and statin Possible Esophagitis As noted above on CTA chest possible cause of chest pain Started on ppi BID GI consulted, appreciate recs -recommending EGD in the AM COPD Chest imaging concerning for emphysema and bronchitis Pt with significant smoking Hx ?cause of chest pain with exertion Not acutely hypoxic, no significant cough or mucus production to suggest exacerbation On Arnuity and prn combivent inhalers PCP followup on discharge Prediabetes Hgba1c of 5.8 Diet and exercise changes encouraged PCP followup Hypertension Stable Continue LOG BUYER lisinopril Hyperlipidemia Continue LOG BUYER atorvastatin Lipid panel wnl Continue other home meds as ordered Diet: HH, safe tray DVT ppx- Hep sq Dispo: return to correctional facility once medically stable Admission and Anticipated Discharge Date Admission Date: October 22, 2024 Subjective pt was seen after his stress test Denied chest pain at that time. Stated that he was having pain whenever he ate though Review of Systems Review of Systems: All systems reviewed & are unremarkable except as noted in Subjective Physical Exam Physical Exam: General: Alert, oriented. No acute distress Skin: No noted rashes or bruises Psych: Appropriate mood and affect Neuro: No gross deficits HEENT: NC/AT CV: RRR Resp: Breath sounds clear bilaterally, no increased effort of breathing Abdomen: Soft, nontender Extremities: No edema in lower extremities bilaterally. Results & Data Results & Data Vital Signs (Past 12 Hours) Vital Signs Temp Pulse Pulse Resp BP Pulse Ox O2 Del Method 10/24/24 13:09 84 10/24/24 11:28 92 H 14 98 Room Air 12/23/24 11:11 36.5 C 96 H 16 105/70 98 Room Air 10/24/24 07:45 36.4 C L 84 16 114/71 98 Room Air 10/24/24 07:37 102 H 14 98 Room Air 10/24/24 07:20 Room Air 10/24/24 05:44 63 10/24/24 02:50 36.5 C 81 16 106/67 98 Room Air
[2024-10-25 07:05] LABS: Basophils # (auto) 0.05 K/uL (0.00-0.20); Basophils % (auto) 0.6 %; Eosinophils # (auto) 0.45 K/uL (0.00-0.50); Eosinophils % (auto) 5.1 %; Hematocrit (blood only) 41.9 % (42.0-52.0); Immature Granulocytes # (auto) 0.02 K/uL (0.01-0.20); Immature Granulocytes % (auto) 0.2 %; Lymphocytes # (auto) 2.83 K/uL (1.20-3.40); Lymphocytes % (auto) 31.8 %; Mean Corpuscular Hemoglobin 28.5 pg (25.0-34.0); Mean Corpuscular Hgb Conc 33.4 g/dL (32.0-36.0); Mean Corpuscular Volume 85.3 fL (80.0-100.0); Mean Platelet Volume 9.7 fL (9.4-12.4); Monocytes % (auto) 13.5 %; Neutrophils # (auto) 4.34 K/uL (1.40-6.50); Neutrophils % (auto) 48.8 %; Platelet Count 300 K/uL (130-400); RDW Coefficient of Variation 14.6 % (11.5-14.5); RDW Standard Deviation 45.1 fL (36.4-46.3); Red Blood Count 4.91 M/uL (4.70-6.10); White Blood Count 8.89 K/ul (4.8-10.8)
[2024-10-25 07:17] LABS: BUN Creatinine Ratio 13.4 (10-20); Creatinine Clr Calc Pharmacy 93.1 ml/min; Magnesium 1.9 mg/dl (1.7-2.4); Phosphorus 3.9 mg/dl (2.5-4.9); Potassium 4.4 mmol/L (3.5-5.1)
[2024-10-25] MEDS: METOPROLOL SUCC 25MG EXT REL TAB PO SCH (08:27)
[2024-10-25] MEDS: lisinopril 10 MG TAB PO SCH (08:27)
--- NOTE | 2024-10-25 09:34 | Gastroenterology Progress Note ---
Date of Service October 25, 2024 Assessment & Plan (1) Chest pain: Plan: Patient declines further GI work-up with EGD. He notes he has no ongoing symptoms or concerns. He is asking when he will be leaving the hospital. Can consider continuation of a PPI upon discharge given his ongoing Meloxicam use in the outpatient setting. Admission and Anticipated Discharge Date Admission Date: October 22, 2024 Supervising Physician Co-Signing Physician Notes I examined the patient and reviewed the medical record, laboratory data and imaging studies. I agree with the assessment and plan of care as suggested by the advanced practice provider. Patient appears comfortable he denies any dysphagia or reflux nausea vomiting or abdominal pain he denies any GI symptoms he refused to get an upper endoscopy despite explaining the risks of missing a lesion to him However he is quite asymptomatic at present At the current time I would continue with PPI once daily and if there are any recurrence of any GI symptoms would have him follow-up in the GI clinic as an outpatient Thank you for allowing us to take part in the care of your patient at this time will sign off if there are any questions please recall Subjective Encounter conducted with the assistance of a Urdu twister tender. Patient is a 54 yo male with chest pain. He underwent a cardiac work-up without significant abnormality. Patient had an EGD 9 months ago at a different facility. He is denying ongoing chest pain. He denies heartburn, epigastric pain, n/v, abdominal pain, melena or hematemesis. He does note some NSAID use. He is not interested in an EGD. Review of Systems Cardiovascular: no chest pain Gastrointestinal: no abdominal pain, no heartburn, no dysphagia, no blood in stools and no melena Physical Exam Constitutional: well developed Respiratory: normal respiratory effort Gastrointestinal (Abdomen): normal bowel sounds, soft, nontender, no hepatosplenomegaly Psychiatric: Orientation: alert and oriented x 3 Results & Data Results & Data Vital Signs (Past 12 Hours) Vital Signs Temp Pulse Pulse Resp BP BP Pulse Ox 10/25/24 07:35 10/25/24 07:14 36.5 C 88 18 103/68 98 10/25/24 05:48 80 10/25/24 04:21 36.4 C L 95 H 16 97/62 L 95 10/24/24 22:00 36.7 C 80 16 98/66 L 75/45 L 95 10/24/24 21:47 68 O2 Del Method 10/25/24 07:35 Room Air 10/25/24 07:14 Room Air 10/25/24 05:48 10/25/24 04:21 Room Air 10/24/24 22:00 Room Air 10/24/24 21:47 PG Care Time/CCT Total # of Minutes Spent Total Time Spent with Patient: Total time spent is greater than 50% in coordination of care (as documented) at patient's floor/unit and/or counseling patient: Coding Level of Care Code 45374 SUB INP/OBS CARE 3/50MIN Diagnoses Chest pain R07.9 Chest pain type: unspecified (1) Chest pain Chest pain type: unspecified Qualified Code(s): R07.9 - Chest pain, unspecified
--- NOTE | 2024-10-25 11:43 | Hospitalist Progress Note ---
Date of Service October 25, 2024 Assessment & Plan (1) Chest pain, exertional: Plan Pt is a 54yoM with PMHx significant for hypertension and hyperlipidemia who presented from a correctional facility with chest pain on exertion. Exertional Chest Pain Presents with chest pain, worse with activity radiating into left arm EKG with NSR, no signs of ischemia Trop x2 wnl, third pending Echo with EF 55-60%, mild LVH, anterior septum movement suggesting possible underlying conduction abnormality Chest XRAY noting groundglass opacities in R lung base, question of viral pneumonia. Also noting acute/chronic bronchitic changes CTA chest noting no PE, emphysematous and fibrotic changes and possible esophagitis. No pneumonia Urine drug screen unremarkable Hgba1c of 5.8, prediabetic Lipid panel wnl Cardiology consulted, appreciate recs -stress echo on 10/24 negative for ischemic changes Remains medically stable without any cardiac and/or GI symptoms Medications have been adjusted by the pain management nurse and GI He will be discharged to the correctional facility this afternoon Possible Esophagitis As noted above on CTA chest possible cause of chest pain Started on ppi BID GI consulted, appreciate recs -recommending EGD in the AM The patient refused to undergo EGD and as per GI instructions will have PPI twice daily to continue on discharge COPD Chest imaging concerning for emphysema and bronchitis Pt with significant smoking Hx ?cause of chest pain with exertion Not acutely hypoxic, no significant cough or mucus production to suggest exacerbation On Arnuity and prn combivent inhalers PCP followup on discharge No acute respiratory symptoms does not have any shortness of breath and wheezing Prediabetes Hgba1c of 5.8 Diet and exercise changes encouraged PCP followup Hypertension Stable Continue INSURANCE ADVISER lisinopril Hyperlipidemia Continue INSURANCE ADVISER atorvastatin Lipid panel wnl Continue other home meds as ordered Diet: HH, safe tray DVT ppx- Hep sq Dispo: return to correctional facility once medically stable Will be discharged to correctional facility this afternoon Tried multiple times to talk to the correctional facility provider but the line is not going through. Admission and Anticipated Discharge Date Admission Date: October 22, 2024 Subjective 10/25/2024 The patient was seen and examined in medical telemetry unit He has been stable and denies any significant symptoms He has had stress echo that came out to be unremarkable He is GI symptoms are stable Will be discharged to correctional facility this afternoon Review of Systems Review of Systems: All systems reviewed and are unremarkable except as noted below Physical Exam Physical Exam: Lying in bed without any acute distress Constitutional: well developed, well nourished and + obese; not ill appearing Eyes: PERRL, conjunctivae normal, anicteric sclerae ENMT: external ear and nose normal, oropharynx normal Neck: trachea midline, no thyromegaly Respiratory: no respiratory distress Auscultation: lungs clear to auscultation bilaterally Cardiovascular: Rate/Rhythm: regular rate and regular rhythm; not tachycardic Heart Sounds: normal S1 and normal S2; no murmur Extremities: no edema Gastrointestinal (Abdomen): Inspection/Auscultation: normal bowel sounds; abdomen not distended Percussion/Palpation: abdomen soft; abdomen nontender Musculoskeletal: No acute arthritis involving any of the joint Neurologic: normal touch/pain/proprioception and moves all extremities; no focal motor deficits Psychiatric: A+Ox3, euthymic affect Lymphatic: no cervical or axillary lymphadenopathy Results & Data Results & Data Vital Signs (Past 12 Hours) Vital Signs Temp Pulse Pulse Resp BP Pulse Ox O2 Del Method 10/25/24 10:33 36.4 C L 79 18 113/72 96 Room Air 10/25/24 07:35 Room Air 10/25/24 07:14 36.5 C 88 18 103/68 98 Room Air 10/25/24 05:48 80 10/25/24 04:21 36.4 C L 95 H 16 97/62 L 95 Room Air Laboratory Results Short CBC 10/25/24 Range/Units 06:32 WBC 8.89 (4.8-10.8) K/ul Hgb 14.0 (14.0-18.0) g/dl Hct 41.9 L (42.0-52.0) % Plt Count 300 (130-400) K/uL BMP 10/25/24 06:32 Sodium 139 Potassium 4.4 Chloride 107 Carbon Dioxide 25 BUN 15 Creatinine 1.12 Glucose 94 Calcium 9.0 Medications Administered Current Inpatient Medications Acetaminophen (Acetaminophen 500 Mg Tab) 500 mg PO QID PRN PRN Reason: Pain Stop: 11/21/24 20:20 Albuterol (Albuterol Hfa 8 Gm Inhaler) 2 puffs INH QID PRN PRN Reason: Shortness Of Breath Or Wheezin Stop: 11/21/24 21:11 Aspirin (Aspirin 81 Mg Ectab) 81 mg PO DAILY [facility] Stop: 11/22/24 08:59 Last Admin: 10/25/24 08:26 Dose: 81 mg Atorvastatin Calcium (Atorvastatin 40 Mg Tab) 40 mg PO HS [facility] Stop: 11/21/24 20:59 Last Admin: 10/24/24 21:13 Dose: 40 mg Fluticasone Furoate (Fluticasone Furoate 100mcg 14 Puffs/Inhaler) 1 puffs INH DAILY [facility] Stop: 11/22/24 08:59 Last Admin: 10/25/24 08:26 Dose: 1 puffs Heparin Sodium (Porcine) (Heparin Sod 5,000 Unit/0.5 Ml Vial) 5,000 units SQ Q8 [facility] Stop: 11/21/24 21:59 Last Admin: 10/25/24 11:39 Dose: Not Given Hydroxyzine HCl (Hydroxyzine Hcl 25 Mg Tab) 50 mg PO HS [facility] Stop: 11/21/24 20:59 Last Admin: 10/24/24 21:13 Dose: 50 mg Lisinopril (Lisinopril 10 Mg Tab) 10 mg PO DAILY [facility] Stop: 11/24/24 08:59 Last Admin: 10/25/24 08:27 Dose: 10 mg Metoprolol Succinate (Metoprolol Succ 25mg Ext Rel Tab) 12.5 mg PO QAM [facility] Stop: 11/24/24 08:59 Last Admin: 10/25/24 08:27 Dose: 12.5 mg Pantoprazole Sodium (Pantoprazole 40 Mg Tab) 40 mg PO BIDM [facility] Stop: 11/23/24 07:59 Last Admin: 10/25/24 08:27 Dose: 40 mg Risperidone (Risperidone 1 Mg Tablet) 1 mg PO HS [facility] Stop: 11/21/24 20:59 Last Admin: 10/24/24 21:13 Dose: 1 mg Trazodone HCl (Trazodone Hcl 50 Mg Tab) 150 mg PO HS [facility] Stop: 11/21/24 20:59 Last Admin: 10/24/24 21:13 Dose: 150 mg
--- NOTE | 2024-10-26 09:08 | Discharge Summary ---
Date of Service October 26, 2024 Admission HPI Per Admitting Provider 54-year-old man with history of hypertension, hyperlipidemia who was brought in from correctional facility for chest pain. Patient reports chest pain has been ongoing for the past 3 months, intermittent, described as sharp/burning pain on the left side of the chest, worsened with activity and associated with shortness of breath. Episode started this morning around 7 AM and was radiating to the left arm. Got aspirin loading at the [facility] and was sent to the ER Chest pain is currently resolved. Denies any other complaints on review of system. Reported father and brother had heart issues and required surgery in the 60s. Reports he smoked for about 30 years about half a pack per day and quit about 4 years ago. Reported he had used cocaine in the past but unclear on his last use Denied alcohol use Admission Exam Per Admitting Provider Constitutional: + well hydrated; no acute distress Eyes: PERRL, conjunctivae normal, anicteric sclerae ENMT: external ear and nose normal, oropharynx normal Respiratory: normal respiratory effort, lungs clear to auscultation Cardiovascular: Rate/Rhythm: regular rate and regular rhythm Gastrointestinal (Abdomen): normal bowel sounds, soft, nontender, no hepatosplenomegaly Musculoskeletal: no cyanosis or clubbing, extremities motor strength 5/5 Neurologic: PERRL, EOMI, accommodation nl, no face palsy, no dysarthria Psychiatric: A+Ox3, euthymic affect Principal Diagnosis Exertional chest pain, negative stress echo, esophagitis Discharge Exam Lying in bed without any acute distress Constitutional well developed, well nourished and + obese; not ill appearing Eyes PERRL, conjunctivae normal, anicteric sclerae ENMT external ear and nose normal, oropharynx normal Neck trachea midline, no thyromegaly Respiratory no respiratory distress Auscultation: lungs clear to auscultation bilaterally Cardiovascular Rate/Rhythm: regular rate and regular rhythm; not tachycardic Heart Sounds: normal S1 and normal S2; no murmur Extremities: no edema Gastrointestinal (Abdomen) Inspection/Auscultation: normal bowel sounds; abdomen not distended Percussion/Palpation: abdomen soft; abdomen nontender Neurologic normal touch/pain/proprioception and moves all extremities; no focal motor deficits Psychiatric A+Ox3, euthymic affect Lymphatic no cervical or axillary lymphadenopathy Discharge Data Allergies Allergy/AdvReac Type Severity Reaction Status Date / Time No Known Allergies Allergy Unverified 10/22/24 21:22 Consultations 10/22/24 14:04 ED Decision to Admit Stat 10/22/24 20:21 Consult Cardiology Routine 10/23/24 15:29 Consult Gastroenterology Routine 10/24/24 09:47 HIM [Consult Health Information Management] Stat Procedures Performed Operation Date: 10/25/24 16:45 <No data on this case meets the specified criteria> Ordered Studies 10/22/24 13:04 CT angio chest PE protocol Stat Hospital Course (1) Chest pain, exertional: Plan Pt is a 54yoM with PMHx significant for hypertension and hyperlipidemia who presented from a correctional facility with chest pain on exertion. Exertional Chest Pain Presents with chest pain, worse with activity radiating into left arm EKG with NSR, no signs of ischemia Trop x2 wnl, third pending Echo with EF 55-60%, mild LVH, anterior septum movement suggesting possible underlying conduction abnormality Chest XRAY noting groundglass opacities in R lung base, question of viral pneu monia. Also noting acute/chronic bronchitic changes CTA chest noting no PE, emphysematous and fibrotic changes and possible esophagitis. No pneumonia Urine drug screen unremarkable Hgba1c of 5.8, prediabetic Lipid panel wnl Cardiology consulted, appreciate recs -stress echo on 10/24 negative for ischemic changes Remains medically stable without any cardiac and/or GI symptoms Medications have been adjusted by the car repairer helper and GI He will be discharged to the correctional facility this afternoon Possible Esophagitis As noted above on CTA chest possible cause of chest pain Started on ppi BID GI consulted, appreciate recs -recommending EGD in the AM The patient refused to undergo EGD and as per GI instructions will have PPI twice daily to continue on discharge COPD Chest imaging concerning for emphysema and bronchitis Pt with significant smoking Hx ?cause of chest pain with exertion Not acutely hypoxic, no significant cough or mucus production to suggest exacerbation On Arnuity and prn combivent inhalers PCP followup on discharge No acute respiratory symptoms does not have any shortness of breath and wheezing Prediabetes Hgba1c of 5.8 Diet and exercise changes encouraged PCP followup Hypertension Stable Continue ECHO TECH lisinopril Hyperlipidemia Continue ECHO TECH atorvastatin Lipid panel wnl Continue other home meds as ordered Diet: HH, safe tray DVT ppx- Hep sq Dispo: return to correctional facility once medically stable Will be discharged to correctional facility this afternoon Tried multiple times to talk to the correctional facility provider but the line is not going through. Total Time Total Time Spent Total Time Spent (In Minutes): 35 minutes Discharge Plan Discharge Items Patient Disposition: Correctional Facility Reason For Visit: CHEST PAIN Discharge Diagnosis: Exertional chest pain, negative stress echo, esophagitis Condition on Discharge: Good Activity: Resume your previous activity Non-emergency contact: Primary Care Provider Call non-emergency contact if: you have any medication questions and your symptoms worsen Follow-up/Referrals: Ebony BAEZA [Primary Care Provider] - Diet: Heart Healthy Addtl Attending Provider Instructions: Please take your medications as advised-your lisinopril dose has been decreased to 10 mg daily and you have been added with metoprolol succinate 12.5 mg daily and Protonix 40 mg twice daily Continue PPI as advised and try to use less of meloxicam as an outpatient Please keep appointment with your healthcare provider Pending Studies at Discharge: No Skilled Items Patient informed of condition?: Yes DNR: No Discharge Level of Care: Other Communicable Disease: No Discharge Prognosis: Stable Lines: None Urinary Catheter: No Medications and DC Order Prescriptions: New pantoprazole 40 mg Tablet,Delayed Release (Dr/Ec) 40 mg PO BIDM Qty: 60 0RF metoprolol succinate 25 mg Tablet Extended Release 24 Hr 12.5 mg PO QAM Qty: 30 0RF Continued atorvastatin 40 mg Tablet 40 mg PO HS hydroxyzine HCl 50 mg Tablet 50 mg PO HS aspirin 81 mg Tablet,Delayed Release (Dr/Ec) 81 mg PO DAILY acetaminophen 500 mg Tablet 500 mg PO QID PRN (Reason: Pain) meloxicam 7.5 mg Tablet 7.5 mg PO BID PRN (Reason: Pain) trazodone 150 mg Tablet 150 mg PO HS albuterol 90 mcg/actuation Aerosol 180 mcg INHALATION QID PRN (Reason: Shortness Of Breath Or Wheezing) risperidone 1 mg Tablet 1 mg PO HS Alvesco 80 mcg/actuation Hfa Aerosol Inhaler 1 puff INHALATION BID Changed lisinopril 20 mg Tablet 10 mg PO DAILY Qty: 0 0RF Admission Data Admit Date/Time: 10/22/24 17:14 Attending Provider: Drew Mejia Admit Provider: Frances Jaeger I. Primary Care Provider: Ebony BAEZA Other Providers: Ino Gonzalez; Sigifredo Dc; Valentino Benoit Other Interventions: Discharge Summary Assessment (RN) Last Done: 10/25/24 11:52
== END 2024-10-25 12:42 | DRG 392 ==
LOC: ED 11:42 → 2W 11:42 → SUATTDRO 17:14 → 2W 20:09